=== PATIENT | female | born 1955 | race Caucasian/White ===

== ENCOUNTER 2023-06-09 10:57 | Inpatient (IN) | payer BC ==
[~2023-06-09] VITALS: Ht 167.6 cm; Wt 76.2 kg
[2023-06-09] MEDS ORDERED: FURO40TA5 PO (11:17)
[2023-06-09] MEDS ORDERED: MONT10TA22 PO (11:17)
[2023-06-09] MEDS ORDERED: NIFE60TA2 PO (11:17)
[2023-06-09] MEDS ORDERED: HYDR100T27 PO (11:17)
[2023-06-09] MEDS ORDERED: FOLI1TAB27 PO (11:17)
[2023-06-09] MEDS ORDERED: GABA300C PO (11:17)
[2023-06-09] MEDS ORDERED: CHOL10005 PO (11:17)
[2023-06-09 11:55] LABS: EOSINOPHILS # (AUTO) 0.1 K/uL (0.0-0.7); LYMPHOCYTES # (AUTO) 0.9 K/uL (0.8-4.8); MONOCYTES # (AUTO) 0.3 K/uL (0.1-1.30); WHITE BLOOD COUNT (AUTO) 3.7 K/uL (3.8-11.8)
[2023-06-09 11:56] LABS: BASOPHILS % (AUTO) 0.6 % (0.0-2.0); EOSINOPHILS % (AUTO) 2.2 % (0.0-7.0); LYMPHOCYTES % (AUTO) 23.9 % (20.5-51.5); MEAN CORPUSCULAR HEMOGLOBIN 27.8 uug (24.7-32.8); MEAN CORPUSCULAR HGB CONC 33 g/dL (32.3-35.6); MEAN CORPUSCULAR VOLUME 83.5 fL (75.5-95.3); MONOCYTES % (AUTO) 8.1 % (0.0-11.0); NEUTROPHILS # (AUTO) 2.4 K/uL (1.8-8.9); NEUTROPHILS % (AUTO) 65.2 % (38.5-71.5); PLATELET COUNT (AUTO) 162 K/uL (179-408)
[2023-06-09 12:12] LABS: RED BLOOD CELL COUNT(AUTO) 1.75 MIL/uL (3.63-4.92)
[2023-06-09 12:14] LABS: HEMOGLOBIN 4.9 g/dL (10.9-14.3)
[2023-06-09 12:15] LABS: DIFFERENTIAL COMMENT 1; HEMATOCRIT 14.6 % (31.2-41.9)
[2023-06-09 12:26] LABS: *BILIRUBIN,URIN NEGATIVE (NEGATIVE); *BLOOD, URINE NEGATIVE (NEGATIVE); *CLARITY,URINE CLEAR (CLEAR); *COLOR,URINE YELLOW (YELLOW); *KETONES,URINE NEGATIVE (NEGATIVE); *UROBILINOGEN,URINE 0.2 E.U./dl (NORMAL); LEUKOCYTE ESTERASE ,URINE NEGATIVE (NEGATIVE); NITRITE, URINE NEGATIVE (NEGATIVE); PH,URINE 5.5 (5.0-8.0); UGLUCOSE NEGATIVE (NEGATIVE)
[2023-06-09 12:28] LABS: *PROTEIN,URINE 3+ (NEGATIVE)
[2023-06-09 12:30] LABS: CALCIUM 9.1 mg/dL (8.5-10.1); CARBON DIOXIDE 27 mmol/L (21-32); CHLORIDE 102 mmol/L (98-107); CREATININE 1.8 mg/dL (0.6-1.3); GLUCOSE 95 mg/dL (74-106); SODIUM SERUM 139 mmol/L (136-145); UREA NITROGEN, BLOOD 23 mg/dL (7-18)
[2023-06-09 12:35] LABS: POTASSIUM 2.7 mmol/L (3.5-5.1)
[2023-06-09 12:37] LABS: ALANINE AMINOTRANSFERASE 12 U/L (14-59); ALKALINE PHOSPHATASE 70 U/L (50-136); ASPARTATE AMINOTRANSFERASE 16 U/L (15-37); BILIRUBIN,DIRECT 0.1 mg/dL (0.0-0.2); BILIRUBIN,TOTAL 0.3 mg/dL (0.2-1.0); NT-PRO BNP 553 pg/mL (0-125); TOTAL PROTEIN, SERUM 6.3 g/dL (6.4-8.2)
[2023-06-09] MEDS ORDERED: hydrALAZINE HCL 20 MG/1 ML VIAL IV PRN (13:15)
[2023-06-09] MEDS ORDERED: ACETAMINOPHEN 325 MG TABLET PO PRN (13:15)
[2023-06-09] MEDS ORDERED: MONTELUKAST SODIUM 10 MG TABLET PO PRN (13:15)
[2023-06-09] MEDS ORDERED: MORPHINE SULFATE 2 MG/1 ML DISP.SYRIN IVP PRN (13:15)
[2023-06-09] MEDS ORDERED: ONDANSETRON 4 MG/2 ML VIAL IV PRN (13:15)
[2023-06-09 14:25] LABS: RBC,URINE 0-3 /HPF (0-3); WBC,URINE 0-3 /HPF (0-3)
[2023-06-09 14:26] LABS: BACTERIA,URINE FEW /HPF (NONE SEEN); SQUAMOUS EPITHELIAL CELL,UR MODERATE /HPF (NONE SEEN)
[2023-06-09 16:54] VITALS: BP 168/74; TEMP 97.5; O2SAT 98
[2023-06-09] MEDS: GABAPENTIN 300 MG CAPSULE PO SCH (17:46)
[2023-06-09] MEDS ORDERED: FUROSEMIDE 20 MG/2 ML VIAL IV ONE (18:00)
[2023-06-09 20:00] VITALS: BP 150/66; TEMP 98; O2SAT 98
[2023-06-09 20:45] VITALS: BP 128/61; TEMP 97.8
[2023-06-09 21:01] VITALS: BP 145/61; TEMP 97.6
[2023-06-09 21:15] VITALS: BP 136/62; TEMP 97.9
[2023-06-09 21:30] VITALS: BP 140/61; TEMP 97.7
[2023-06-10] VITALS (11 sets, daily range): BP systolic 122–167; BP diastolic 65–83; TEMP 97.5–98.4; O2SAT 96–98
[2023-06-10] MEDS ORDERED: FUROSEMIDE 20 MG/2 ML VIAL IV ONE (04:30)
[2023-06-10 05:24] LABS: BASOPHILS % (AUTO) 0.9 % (0.0-2.0); EOSINOPHILS # (AUTO) 0.2 K/uL (0.0-0.7); EOSINOPHILS % (AUTO) 3.2 % (0.0-7.0); HEMOGLOBIN 9.2 g/dL (10.9-14.3); LYMPHOCYTES # (AUTO) 1.2 K/uL (0.8-4.8); LYMPHOCYTES % (AUTO) 23.1 % (20.5-51.5); MEAN CORPUSCULAR HEMOGLOBIN 28.6 uug (24.7-32.8); MEAN CORPUSCULAR HGB CONC 34 g/dL (32.3-35.6); MEAN CORPUSCULAR VOLUME 83.7 fL (75.5-95.3); MONOCYTES # (AUTO) 0.5 K/uL (0.1-1.30); MONOCYTES % (AUTO) 10.6 % (0.0-11.0); NEUTROPHILS # (AUTO) 3.2 K/uL (1.8-8.9); NEUTROPHILS % (AUTO) 62.2 % (38.5-71.5); PLATELET COUNT (AUTO) 263 K/uL (179-408); RED BLOOD CELL COUNT(AUTO) 3.23 MIL/uL (3.63-4.92); RED CELL DISTRIBUTION WIDTH 16.7 % (12.3-17.7); WHITE BLOOD COUNT (AUTO) 5.1 K/uL (3.8-11.8)
[2023-06-10 05:39] LABS: DIFFERENTIAL COMMENT 1
[2023-06-10 05:48] LABS: BILIRUBIN,TOTAL 0.6 mg/dL (0.2-1.0); CALCIUM 9.1 mg/dL (8.5-10.1); CREATININE 1.9 mg/dL (0.6-1.3); PHOSPHOROUS 4.8 mg/dL (2.5-4.9); TOTAL PROTEIN, SERUM 6.4 g/dL (6.4-8.2)
[2023-06-10 06:02] LABS: POTASSIUM 2.8 mmol/L (3.5-5.1)
[2023-06-10] MEDS: CHOLECALCIFEROL 1,000 UNIT TABLET PO SCH (08:35)
[2023-06-10] MEDS: FOLIC ACID 1 MG TABLET PO SCH (08:35)
[2023-06-10] MEDS: NIFEdipine XL 60 MG TABSR PO SCH (08:36)
[2023-06-10] MEDS: GABAPENTIN 300 MG CAPSULE PO SCH ×3 (08:36→16:25)
[2023-06-10] MEDS: POTASSIUM CHLORIDE 20 MEQ TAB.PRT.SR PO SCH ×2 (08:52→16:26)
[2023-06-10] MEDS ORDERED: FUROSEMIDE 40 MG TABLET PO SCH (09:00)
[2023-06-10] MEDS ORDERED: Medication Not On Formulary EA (Cholecalciferol (Vitamin D3) (Vitamin D3) 1 CAP) PO SCH (09:00)
[2023-06-10 09:15] LABS: HEMATOCRIT 27.9 % (31.2-41.9); HEMOGLOBIN 9.2 g/dL (10.9-14.3)
[2023-06-10 14:45] LABS: HEMATOCRIT 27.5 % (31.2-41.9); HEMOGLOBIN 9.3 g/dL (10.9-14.3)
[2023-06-10 22:38] LABS: HEMATOCRIT 28.3 % (31.2-41.9); HEMOGLOBIN 9.4 g/dL (10.9-14.3)
[2023-06-11 00:16] VITALS: BP 175/88; TEMP 98.1; O2SAT 95
[2023-06-11 04:00] VITALS: BP 155/76; TEMP 98.2; O2SAT 93
[2023-06-11 06:30] LABS: BASOPHILS % (AUTO) 0.8 % (0.0-2.0); EOSINOPHILS # (AUTO) 0.1 K/uL (0.0-0.7); EOSINOPHILS % (AUTO) 2.6 % (0.0-7.0); HEMATOCRIT 26.3 % (31.2-41.9); LYMPHOCYTES # (AUTO) 1.2 K/uL (0.8-4.8); LYMPHOCYTES % (AUTO) 21.8 % (20.5-51.5); MEAN CORPUSCULAR HGB CONC 34 g/dL (32.3-35.6); MEAN CORPUSCULAR VOLUME 84.5 fL (75.5-95.3); MONOCYTES # (AUTO) 0.6 K/uL (0.1-1.30); MONOCYTES % (AUTO) 10.6 % (0.0-11.0); NEUTROPHILS # (AUTO) 3.6 K/uL (1.8-8.9); NEUTROPHILS % (AUTO) 64.2 % (38.5-71.5); PLATELET COUNT (AUTO) 262 K/uL (179-408); RED BLOOD CELL COUNT(AUTO) 3.11 MIL/uL (3.63-4.92); RED CELL DISTRIBUTION WIDTH 16.4 % (12.3-17.7); WHITE BLOOD COUNT (AUTO) 5.6 K/uL (3.8-11.8)
[2023-06-11 06:58] LABS: DIFFERENTIAL COMMENT 1
[2023-06-11 07:08] LABS: ALBUMIN 2.7 g/dL (3.4-5.0); BILIRUBIN,TOTAL 0.3 mg/dL (0.2-1.0); CALCIUM 8.6 mg/dL (8.5-10.1); CREATININE 1.7 mg/dL (0.6-1.3); MAGNESIUM 1.6 mg/dL (1.8-2.4); PHOSPHOROUS 4.2 mg/dL (2.5-4.9); POTASSIUM 3.4 mmol/L (3.5-5.1); TOTAL PROTEIN, SERUM 6.1 g/dL (6.4-8.2)
[2023-06-11] MEDS: FOLIC ACID 1 MG TABLET PO SCH (08:49)
[2023-06-11] MEDS: CHOLECALCIFEROL 1,000 UNIT TABLET PO SCH (08:49)
[2023-06-11] MEDS: GABAPENTIN 300 MG CAPSULE PO SCH ×2 (08:49→12:13)
[2023-06-11] MEDS: POTASSIUM CHLORIDE 20 MEQ TAB.PRT.SR PO SCH (08:49)
[2023-06-11 08:50] VITALS: BP 150/70
[2023-06-11] MEDS: NIFEdipine XL 60 MG TABSR PO SCH (08:50)
[2023-06-11] MEDS ORDERED: POTASSIUM CHLORIDE 20 MEQ TAB.PRT.SR PO ONE (09:30)
[2023-06-11] MEDS ORDERED: MAGNESIUM OXIDE 400 MG TABLET PO ONE (11:00)
[2023-06-11 11:16] LABS: *BILIRUBIN,URIN NEGATIVE (NEGATIVE); *BLOOD, URINE NEGATIVE (NEGATIVE); *CLARITY,URINE CLEAR (CLEAR); *COLOR,URINE YELLOW (YELLOW); *KETONES,URINE NEGATIVE (NEGATIVE); *PROTEIN,URINE 3+ (NEGATIVE); *UROBILINOGEN,URINE 0.2 E.U./dl (NORMAL); LEUKOCYTE ESTERASE ,URINE NEGATIVE (NEGATIVE); NITRITE, URINE NEGATIVE (NEGATIVE); PH,URINE 5.5 (5.0-8.0); UGLUCOSE NEGATIVE (NEGATIVE)
[2023-06-11 11:36] LABS: *CREATININE,URINE 68.4 mg/dL (30-125); *URINE TOTAL PROTEIN RANDOM 165.8 mg/dL (<150/24HR)
[2023-06-11 13:23] LABS: RBC,URINE 0-3 /HPF (0-3); WBC,URINE 0-3 /HPF (0-3)
[2023-06-11 13:24] LABS: BACTERIA,URINE NONE SEEN /HPF (NONE SEEN); SQUAMOUS EPITHELIAL CELL,UR FEW /HPF (NONE SEEN)
[2023-06-13 07:06] LABS: PTH, INTACT 49 pg/mL (15-65)
[2023-06-13 12:17] LABS: ALBUMIN 2.8 g/dL (2.9-4.4); ALPHA-1-GLOBULIN 0.3 g/dL (0.0-0.4); ALPHA-2-GLOBULIN 0.8 g/dL (0.4-1.0); GAMMA GLOBULIN 0.7 g/dL (0.4-1.8); GLOBULIN, TOTAL 2.8 g/dL (2.2-3.9); M-SPIKE Not Observed g/dL (Not Observed)
== END 2023-06-11 15:00 | disposition home or self-care (01) | DRG 811 ==
LOC: ER 10:57 → TELE3 16:14
PROVIDERS: ADMIT Internal Medicine; ATTEND Internal Medicine
PROC: 30243N1 Transfusion of Nonautologous Red Blood Cells into Central Vein, Percutaneous Approach (ICD-10-PCS; principal; 2023-06-09)
DX: D64.9 Anemia, unspecified (principal); N17.0 Acute kidney failure with tubular necrosis; C56.9 Malignant neoplasm of unspecified ovary; C79.81 Secondary malignant neoplasm of breast; E87.6 Hypokalemia; R60.9 Edema, unspecified; Z79.899 Other long term (current) drug therapy; T45.1X5A Adverse effect of antineoplastic and immunosuppressive drugs, initial encounter; Y92.9 Unspecified place or not applicable; I10 Essential (primary) hypertension; Z87.442 Personal history of urinary calculi; N18.9 Chronic kidney disease, unspecified
CPT/HCPCS: 36415; 71045; 76770; 83605; 83735; 83970; 84100; 84155; 84165; 84300; 84484; 85018; 85025; 85730; 86850; 86900; 86901; 86920; 87040; 93005; A4663; G0378; J0360; J1940; J7040; P9016

== ENCOUNTER 2023-07-24 14:08 | Inpatient (IN) | payer BC ==
[~2023-07-24] VITALS: Ht 157.5 cm; Wt 92.3 kg
[~2023-07-24 14:08] MED LIST: CHOL10005 PO; FOLI1TAB27 PO; FURO40TA5 PO; GABA300C PO; HYDR100T27 PO; MONT10TA22 PO; NIFE60TA2 PO
[2023-07-24] MEDS ORDERED: CEFTAZIDIME 2 G in IV DEXTROSE 5% 100 ML IV ONE (15:00)
[2023-07-24] MEDS ORDERED: IV NORMAL SALINE 1000 ML BAG IV ONE (15:00)
[2023-07-24] MEDS ORDERED: DOXYCYCLINE HYCLATE IV 100 MG in IV DEXTROSE 5% 250 ML IV ONE (15:00)
[2023-07-24 15:36] LABS: BASOPHILS # (AUTO) 0.1 K/UL (0.0-0.2); BASOPHILS % (AUTO) 1.1 % (0.0-2.0); EOSINOPHILS % (AUTO) 0.9 % (0.0-7.0); HEMATOCRIT 22.5 % (31.2-41.9); HEMOGLOBIN 7.6 g/dL (10.9-14.3); LYMPHOCYTES # (AUTO) 0.8 K/uL (0.8-4.8); LYMPHOCYTES % (AUTO) 15.8 % (20.5-51.5); MEAN CORPUSCULAR HEMOGLOBIN 28.4 uug (24.7-32.8); MEAN CORPUSCULAR HGB CONC 34 g/dL (32.3-35.6); MEAN CORPUSCULAR VOLUME 84.1 fL (75.5-95.3); MONOCYTES # (AUTO) 0.6 K/uL (0.1-1.30); MONOCYTES % (AUTO) 13.1 % (0.0-11.0); NEUTROPHILS # (AUTO) 3.4 K/uL (1.8-8.9); NEUTROPHILS % (AUTO) 69.1 % (38.5-71.5); PLATELET COUNT (AUTO) 307 K/uL (179-408); RED BLOOD CELL COUNT(AUTO) 2.68 MIL/uL (3.63-4.92); RED CELL DISTRIBUTION WIDTH 18.9 % (12.3-17.7); WHITE BLOOD COUNT (AUTO) 4.9 K/uL (3.8-11.8)
[2023-07-24 15:38] LABS: DIFFERENTIAL COMMENT 1
[2023-07-24 15:47] LABS: CARBON DIOXIDE 25 mmol/L (21-32); CHLORIDE 107 mmol/L (98-107); CREATININE 1.2 mg/dL (0.6-1.3); GLUCOSE 90 mg/dL (74-106); POTASSIUM 3.1 mmol/L (3.5-5.1); SODIUM SERUM 144 mmol/L (136-145); UREA NITROGEN, BLOOD 19 mg/dL (7-18)
[2023-07-24 16:01] LABS: ALANINE AMINOTRANSFERASE 11 U/L (14-59); ALBUMIN 3.1 g/dL (3.4-5.0); ALKALINE PHOSPHATASE 99 U/L (50-136); ASPARTATE AMINOTRANSFERASE 20 U/L (15-37); BILIRUBIN,DIRECT 0.1 mg/dL (0.0-0.2); BILIRUBIN,TOTAL 0.4 mg/dL (0.2-1.0); TOTAL PROTEIN, SERUM 6.3 g/dL (6.4-8.2)
[2023-07-24] MEDS ORDERED: MONTELUKAST SODIUM 10 MG TABLET PO PRN (18:30)
[2023-07-24] MEDS ORDERED: ACETAMINOPHEN 325 MG TABLET PO PRN (18:45)
[2023-07-24] MEDS ORDERED: ONDANSETRON 4 MG/2 ML VIAL IV PRN (18:45)
[2023-07-24] MEDS ORDERED: MAGNESIUM HYDROXIDE 30 ML LIQUID UDC PO PRN (18:45)
[2023-07-24] MEDS ORDERED: REMEDY ESSENTIAL ZINC PASTE 113 GM TP PRN (18:45)
[2023-07-24 20:26] LABS: *BILIRUBIN,URIN NEGATIVE (NEGATIVE); *CLARITY,URINE CLEAR (CLEAR); *COLOR,URINE YELLOW (YELLOW); *KETONES,URINE NEGATIVE (NEGATIVE); *UROBILINOGEN,URINE 0.2 E.U./dl (NORMAL); LEUKOCYTE ESTERASE ,URINE NEGATIVE (NEGATIVE); NITRITE, URINE NEGATIVE (NEGATIVE); PH,URINE 7.5 (5.0-8.0); UGLUCOSE NEGATIVE (NEGATIVE)
[2023-07-24 20:56] LABS: *BLOOD, URINE NEGATIVE (NEGATIVE)
[2023-07-24 20:57] LABS: *PROTEIN,URINE NEGATIVE (NEGATIVE)
[2023-07-24] MEDS ORDERED: DOXYCYCLINE HYCLATE 100 MG INJ IV ONE (22:35)
[2023-07-24] MEDS ORDERED: CEFTRIAXONE /D5W 50ML IVPB **ER PYXIS IV ONE (22:36)
[2023-07-24] MEDS: CEFTRIAXONE 1 G in IV DEXTROSE 5% 50 ML IV SCH (22:48)
[2023-07-25 00:04] VITALS: BP 115/82; TEMP 98
[2023-07-25] MEDS: DOXYCYCLINE HYCLATE IV 100 MG in IV DEXTROSE 5% 100 ML IV SCH ×2 (03:10→16:31)
[2023-07-25 07:11] LABS: BASOPHILS % (AUTO) 0.8 % (0.0-2.0); EOSINOPHILS # (AUTO) 0.1 K/uL (0.0-0.7); EOSINOPHILS % (AUTO) 1.5 % (0.0-7.0); HEMATOCRIT 23.8 % (31.2-41.9); LYMPHOCYTES # (AUTO) 0.9 K/uL (0.8-4.8); LYMPHOCYTES % (AUTO) 22.1 % (20.5-51.5); MEAN CORPUSCULAR HEMOGLOBIN 28.2 uug (24.7-32.8); MEAN CORPUSCULAR HGB CONC 34 g/dL (32.3-35.6); MEAN CORPUSCULAR VOLUME 83.7 fL (75.5-95.3); MONOCYTES # (AUTO) 0.5 K/uL (0.1-1.30); MONOCYTES % (AUTO) 11.7 % (0.0-11.0); NEUTROPHILS # (AUTO) 2.8 K/uL (1.8-8.9); NEUTROPHILS % (AUTO) 63.9 % (38.5-71.5); PLATELET COUNT (AUTO) 316 K/uL (179-408); RED BLOOD CELL COUNT(AUTO) 2.85 MIL/uL (3.63-4.92); RED CELL DISTRIBUTION WIDTH 18.8 % (12.3-17.7); WHITE BLOOD COUNT (AUTO) 4.3 K/uL (3.8-11.8)
[2023-07-25 07:30] LABS: DIFFERENTIAL COMMENT 1
[2023-07-25 07:35] LABS: CALCIUM 8.7 mg/dL (8.5-10.1); CREATININE 1.1 mg/dL (0.6-1.3); PHOSPHOROUS 3.6 mg/dL (2.5-4.9)
[2023-07-25 08:08] LABS: POTASSIUM 2.8 mmol/L (3.5-5.1)
[2023-07-25] MEDS: hydrALAZINE HCL 50 MG TABLET PO SCH (08:32)
[2023-07-25] MEDS: GABAPENTIN 300 MG CAPSULE PO SCH ×3 (08:32→16:31)
[2023-07-25] MEDS: NIFEdipine XL 60 MG TABSR PO SCH (08:33)
[2023-07-25] MEDS: FOLIC ACID 1 MG TABLET PO SCH (08:33)
[2023-07-25] MEDS ORDERED: Medication Not On Formulary EA (Cholecalciferol (Vitamin D3) (Vitamin D3) 1 CAP) PO SCH (09:00)
[2023-07-25] MEDS ORDERED: POTASSIUM CHLORIDE 20 MEQ TAB.PRT.SR PO ONE (09:30)
[2023-07-25] MEDS: CHOLECALCIFEROL 1,000 UNIT TABLET PO SCH (09:37)
[2023-07-25] MEDS ORDERED: FUROSEMIDE 40 MG/4 ML VIAL IV ONE (10:00)
[2023-07-25 11:47] VITALS: BP 157/72; TEMP 97.5; O2SAT 97
[2023-07-25] MEDS ORDERED: HYDR100T27 PO (14:58)
[2023-07-25 16:00] VITALS: BP 163/79; TEMP 97.9; O2SAT 95
[2023-07-25 20:15] VITALS: BP 156/72; TEMP 98.9; O2SAT 97
[2023-07-25] MEDS: CEFTRIAXONE 1 G in IV DEXTROSE 5% 50 ML IV SCH (21:32)
[2023-07-26 00:07] VITALS: BP 164/74; TEMP 98.5; O2SAT 94
[2023-07-26] MEDS: DOXYCYCLINE HYCLATE IV 100 MG in IV DEXTROSE 5% 100 ML IV SCH ×3 (04:12→17:15)
[2023-07-26 04:20] VITALS: BP 152/70; TEMP 98.3; O2SAT 96
[2023-07-26 07:06] LABS: BASOPHILS % (AUTO) 0.4 % (0.0-2.0); DIFFERENTIAL COMMENT 0; EOSINOPHILS # (AUTO) 0.1 K/uL (0.0-0.7); EOSINOPHILS % (AUTO) 2.5 % (0.0-7.0); HEMATOCRIT 23.3 % (31.2-41.9); HEMOGLOBIN 7.8 g/dL (10.9-14.3); LYMPHOCYTES # (AUTO) 1.1 K/uL (0.8-4.8); LYMPHOCYTES % (AUTO) 25.8 % (20.5-51.5); MEAN CORPUSCULAR HGB CONC 34 g/dL (32.3-35.6); MEAN CORPUSCULAR VOLUME 83.4 fL (75.5-95.3); MONOCYTES # (AUTO) 0.7 K/uL (0.1-1.30); MONOCYTES % (AUTO) 17.1 % (0.0-11.0); NEUTROPHILS # (AUTO) 2.2 K/uL (1.8-8.9); NEUTROPHILS % (AUTO) 54.2 % (38.5-71.5); PLATELET COUNT (AUTO) 240 K/uL (179-408); RED CELL DISTRIBUTION WIDTH 18.4 % (12.3-17.7); WHITE BLOOD COUNT (AUTO) 4.1 K/uL (3.8-11.8)
[2023-07-26 07:14] LABS: CALCIUM 8.6 mg/dL (8.5-10.1); POTASSIUM 2.9 mmol/L (3.5-5.1)
[2023-07-26 07:54] VITALS: BP 180/85; TEMP 98.1; O2SAT 98
[2023-07-26] MEDS: GABAPENTIN 300 MG CAPSULE PO SCH ×3 (08:36→17:04)
[2023-07-26] MEDS: hydrALAZINE HCL 50 MG TABLET PO SCH (08:36)
[2023-07-26] MEDS: FOLIC ACID 1 MG TABLET PO SCH (08:36)
[2023-07-26] MEDS: NIFEdipine XL 60 MG TABSR PO SCH (08:36)
[2023-07-26] MEDS ORDERED: POTASSIUM CHLORIDE 20 MEQ POWDER PACKET PO ONE (09:00)
[2023-07-26] MEDS: POTASSIUM CHLORIDE 10 MEQ, LIDOCAINE-MPF 1% 1 ML in IV DEXTROSE 5% 100 ML IV SCH ×4 (09:30→13:35)
[2023-07-26] MEDS: FUROSEMIDE 40 MG/4 ML VIAL IV SCH (09:44)
[2023-07-26 10:43] LABS: EOSINOPHILS % (MANUAL) 2 % (0-8); HYPOCHROMASIA 1+; LYMPHOCYTES % (MANUAL) 25 % (20-40); MONOCYTES % (MANUAL) 18 % (2-10); NEUTROPHILS % (MANUAL) 55 % (42-75); PLATELET ESTIMATE MODERATE CLUMPS PLT
[2023-07-26 10:44] LABS: ANISOCYTOSIS 2+; TARGET CELLS 1+
[2023-07-26 11:44] VITALS: BP 162/67; TEMP 98.4; O2SAT 96
[2023-07-26 15:51] VITALS: BP 130/67; TEMP 98.2; O2SAT 97
[2023-07-26] MEDS: CHOLECALCIFEROL 1,000 UNIT TABLET PO SCH (17:05)
[2023-07-26] MEDS: hydrALAZINE HCL 25 MG TABLET PO PRN (20:09)
[2023-07-26 20:40] VITALS: BP 180/88; TEMP 98; O2SAT 98
[2023-07-26] MEDS: CEFTRIAXONE 1 G in IV DEXTROSE 5% 50 ML IV SCH (21:54)
[2023-07-27 00:26] VITALS: BP 176/82; TEMP 98.2; O2SAT 99
[2023-07-27] MEDS: hydrALAZINE HCL 25 MG TABLET PO PRN (03:59)
[2023-07-27] MEDS: DOXYCYCLINE HYCLATE IV 100 MG in IV DEXTROSE 5% 100 ML IV SCH (04:00)
[2023-07-27 04:01] VITALS: BP 184/84; TEMP 98.9; O2SAT 95
[2023-07-27] MEDS: NIFEdipine XL 60 MG TABSR PO SCH (08:40)
[2023-07-27] MEDS: hydrALAZINE HCL 50 MG TABLET PO SCH (08:41)
[2023-07-27] MEDS: FOLIC ACID 1 MG TABLET PO SCH (08:41)
[2023-07-27] MEDS: GABAPENTIN 300 MG CAPSULE PO SCH ×2 (08:41→13:24)
[2023-07-27] MEDS: FUROSEMIDE 40 MG/4 ML VIAL IV SCH (08:42)
[2023-07-27] MEDS ORDERED: CHOLECALCIFEROL 1,000 UNIT TABLET PO SCH (09:00)
[2023-07-27] MEDS ORDERED: LOSARTAN POTASSIUM 50 MG TABLET PO SCH (10:00)
[2023-07-27] MEDS ORDERED: hydrALAZINE HCL 50 MG TABLET PO SCH ×2 (10:30→14:00)
[2023-07-27] MEDS: POTASSIUM CHLORIDE 50 ML IV SCH ×4 (10:52→13:57)
[2023-07-27 10:55] LABS: BASOPHILS # (AUTO) 0.1 K/UL (0.0-0.2); EOSINOPHILS # (AUTO) 0.1 K/uL (0.0-0.7); EOSINOPHILS % (AUTO) 1.8 % (0.0-7.0); HEMATOCRIT 29.2 % (31.2-41.9); HEMOGLOBIN 9.5 g/dL (10.9-14.3); LYMPHOCYTES % (AUTO) 18.4 % (20.5-51.5); MEAN CORPUSCULAR HEMOGLOBIN 27.2 uug (24.7-32.8); MEAN CORPUSCULAR HGB CONC 33 g/dL (32.3-35.6); MEAN CORPUSCULAR VOLUME 83.6 fL (75.5-95.3); MONOCYTES # (AUTO) 0.6 K/uL (0.1-1.30); MONOCYTES % (AUTO) 10.2 % (0.0-11.0); NEUTROPHILS # (AUTO) 3.7 K/uL (1.8-8.9); NEUTROPHILS % (AUTO) 67.6 % (38.5-71.5); PLATELET COUNT (AUTO) 309 K/uL (179-408); RED BLOOD CELL COUNT(AUTO) 3.49 MIL/uL (3.63-4.92); RED CELL DISTRIBUTION WIDTH 18.8 % (12.3-17.7); WHITE BLOOD COUNT (AUTO) 5.5 K/uL (3.8-11.8)
[2023-07-27] MEDS ORDERED: MAGN200T5 PO (11:04)
[2023-07-27] MEDS ORDERED: NIFE90TA2 PO (11:04)
[2023-07-27] MEDS ORDERED: CEFU500T66 PO (11:04)
[2023-07-27] MEDS ORDERED: BUME2TAB7 PO (11:04)
[2023-07-27] MEDS ORDERED: DOXY-326 PO (11:04)
[2023-07-27 11:09] LABS: DIFFERENTIAL COMMENT 1
[2023-07-27 12:05] LABS: CALCIUM 9.2 mg/dL (8.5-10.1); CREATININE 0.9 mg/dL (0.6-1.3); POTASSIUM 3.2 mmol/L (3.5-5.1)
[2023-07-27 13:24] VITALS: BP 184/84
[2023-07-28] MEDS ORDERED: NIFEdipine XL 90 MG TABSR PO SCH (09:00)
[2023-07-28] MEDS ORDERED: LOSARTAN POTASSIUM 50 MG TABLET PO SCH (09:00)
== END 2023-07-27 16:01 | disposition home or self-care (01) | DRG 193 ==
LOC: ER 14:10 → MEDSURG3 21:47 → TELE3 22:02 → MEDSURG3 07-27 09:45
PROVIDERS: ADMIT Nurse Practitioner Acute Care; ATTEND Nurse Practitioner Acute Care
DX: J15.9 Unspecified bacterial pneumonia (principal); I50.33 Acute on chronic diastolic (congestive) heart failure; J96.01 Acute respiratory failure with hypoxia; C56.9 Malignant neoplasm of unspecified ovary; C79.9 Secondary malignant neoplasm of unspecified site; E44.1 Mild protein-calorie malnutrition; I31.39 Other pericardial effusion (noninflammatory); J98.11 Atelectasis; I89.0 Lymphedema, not elsewhere classified; T45.1X5A Adverse effect of antineoplastic and immunosuppressive drugs, initial encounter; Y92.89 Other specified places as the place of occurrence of the external cause; E66.9 Obesity, unspecified; Z68.38 Body mass index [BMI] 38.0-38.9, adult; E88.09 Other disorders of plasma-protein metabolism, not elsewhere classified; I11.0 Hypertensive heart disease with heart failure; E87.6 Hypokalemia; J30.9 Allergic rhinitis, unspecified; D63.0 Anemia in neoplastic disease; R53.1 Weakness; Z79.899 Other long term (current) drug therapy
CPT/HCPCS: 36415; 70030-TC; 71045; 71250; 83605; 83735; 84100; 84484; 85025; 85730; 87040; 93005; 93307; A4606; G0378; J0696; J0713; J1940; J2001; J3480; J3490; J7050

== ENCOUNTER 2023-08-18 10:38 | Emergency (ER) | payer BC ==
[~2023-08-18] VITALS: Ht 157.5 cm; Wt 86.2 kg
[~2023-08-18 10:38] MED LIST changes: +BUME2TAB7 PO; +CEFU500T66 PO; +DOXY-326 PO; -FURO40TA5 PO; +MAGN200T5 PO; -NIFE60TA2 PO; +NIFE90TA2 PO
[2023-08-18 12:13] LABS: BASOPHILS % (AUTO) 0.6 % (0.0-2.0); EOSINOPHILS # (AUTO) 0.1 K/uL (0.0-0.7); EOSINOPHILS % (AUTO) 1.4 % (0.0-7.0); HEMATOCRIT 21.7 % (31.2-41.9); LYMPHOCYTES # (AUTO) 1.1 K/uL (0.8-4.8); LYMPHOCYTES % (AUTO) 21.8 % (20.5-51.5); MEAN CORPUSCULAR HEMOGLOBIN 26.6 uug (24.7-32.8); MEAN CORPUSCULAR HGB CONC 32 g/dL (32.3-35.6); MEAN CORPUSCULAR VOLUME 83.6 fL (75.5-95.3); MONOCYTES # (AUTO) 0.3 K/uL (0.1-1.30); MONOCYTES % (AUTO) 6.5 % (0.0-11.0); NEUTROPHILS # (AUTO) 3.4 K/uL (1.8-8.9); NEUTROPHILS % (AUTO) 69.7 % (38.5-71.5); PLATELET COUNT (AUTO) 384 K/uL (179-408); RED CELL DISTRIBUTION WIDTH 20.7 % (12.3-17.7); WHITE BLOOD COUNT (AUTO) 4.8 K/uL (3.8-11.8)
[2023-08-18 12:19] LABS: CALCIUM 9.3 mg/dL (8.5-10.1); POTASSIUM 3.7 mmol/L (3.5-5.1)
[2023-08-18 12:54] LABS: DIFFERENTIAL COMMENT 1
[2023-08-18 12:55] LABS: HEMOGLOBIN 6.9 g/dL (10.9-14.3)
[2023-08-18 15:29] LABS: EOSINOPHILS % (MANUAL) 1 % (0-8); LYMPHOCYTES % (MANUAL) 25 % (20-40); MONOCYTES % (MANUAL) 8 % (2-10); NEUTROPHILS % (MANUAL) 66 % (42-75); PLATELET ESTIMATE ADEQUATE
[2023-08-18 15:30] LABS: ANISOCYTOSIS 2+; HYPOCHROMASIA 1+
[2023-08-18 18:39] VITALS: BP 140/71; O2SAT 96
== END 2023-08-18 17:24 | disposition home or self-care (01) ==
LOC: ER 10:38
DX: D64.9 Anemia, unspecified (principal); I50.9 Heart failure, unspecified; Z79.899 Other long term (current) drug therapy; Z60.2 Problems related to living alone
CPT/HCPCS: 36415; 36430; 80048; 85007; 85025; 86850; 86900; 86901; 86920; 99285; J7040; P9016; 70030-TC; A4606; A4663

== ENCOUNTER 2023-08-19 12:30 | Emergency (ER) | payer BC ==
[~2023-08-19] VITALS: Ht 157.5 cm; Wt 86.2 kg
[~2023-08-19 12:30] MED LIST changes: -BUME2TAB7 PO; -CEFU500T66 PO
[2023-08-19 13:00] LABS: BASOPHILS # (AUTO) 0.1 K/UL (0.0-0.2); BASOPHILS % (AUTO) 1.2 % (0.0-2.0); EOSINOPHILS # (AUTO) 0.1 K/uL (0.0-0.7); EOSINOPHILS % (AUTO) 1.8 % (0.0-7.0); HEMATOCRIT 25.7 % (31.2-41.9); HEMOGLOBIN 8.2 g/dL (10.9-14.3); LYMPHOCYTES # (AUTO) 0.7 K/uL (0.8-4.8); MEAN CORPUSCULAR HEMOGLOBIN 27.1 uug (24.7-32.8); MEAN CORPUSCULAR HGB CONC 32 g/dL (32.3-35.6); MONOCYTES # (AUTO) 0.3 K/uL (0.1-1.30); MONOCYTES % (AUTO) 5.8 % (0.0-11.0); NEUTROPHILS # (AUTO) 3.8 K/uL (1.8-8.9); NEUTROPHILS % (AUTO) 77.2 % (38.5-71.5); PLATELET COUNT (AUTO) 390 K/uL (179-408); RED BLOOD CELL COUNT(AUTO) 3.03 MIL/uL (3.63-4.92); RED CELL DISTRIBUTION WIDTH 20.3 % (12.3-17.7)
[2023-08-19 13:29] LABS: DIFFERENTIAL COMMENT 1
[2023-08-19 13:45] VITALS: BP 131/70; TEMP 97.8; O2SAT 98
== END 2023-08-19 14:00 | disposition home or self-care (01) ==
LOC: ER 12:31
DX: D64.9 Anemia, unspecified (principal); I50.9 Heart failure, unspecified; Z79.2 Long term (current) use of antibiotics; Z79.899 Other long term (current) drug therapy
CPT/HCPCS: 36415; 85025; A4606; A4663